=== PATIENT | male | born 1950 | race Caucasian/White ===

== ENCOUNTER 2017-06-20 14:11 | Inpatient (IN) ==
[2017-06-20] MEDS ORDERED: 0.9 % Sodium Chloride 1,000 ML IVC ONE (14:44)
--- NOTE | 2017-06-20 15:11 | Emergency Department Note ---
Disposition Clinical Impression: Ureterolithiasis, Renal calculus, bilateral Disposition: Admitted As Inpatient Condition: Fair Time of Disposition: 16:52 Abdominal Pain HPI - General Chief Complaint: ED Abdominal Pain Stated Complaint: Kidney Stone Time Seen by Provider: 06/20/17 14:16 Source: EMS Mode of arrival: EMS Limitations: no limitations Nursing Notes Reviewed: Yes Vital Signs Reviewed: Yes - History of Present Illness HPI Narrative: Patient is a 67-year-old male with a history of previous kidney stones who presents from the [facility] by EMS for bilateral large ureteral stones. Patient states stones were identified on MRI, over week ago. Patient had increase in pain with past 2 days patient states pain is right flank and right lower back area. Patient states pain is 7 out of 10 and achy but denies any nausea vomiting fevers. Patient went to the [facility] urgent care and was directed by urology they are to come to [place] and have assessment and fever for his stones that are greater than 1 cm bilaterally Pt Subjective Complaint: flank pain Onset (ago): day(s) Consistency: constant Location: RLQ Pain Severity: severe Pain Scale: 4 Quality: aching Radiation: none Migration to: no migration Improves with: medication Worsens with: movement Associated symptoms: Reports: denies other symptoms - Related Data Home Medications Medication Instructions Recorded Confirmed Acetaminophen/Diphenhydramine 2 each PO HS PRN 06/20/17 06/20/17 [Acetaminophen Pm Caplet] Allopurinol [Zyloprim] 300 mg PO DAILY 06/20/17 06/20/17 Amlodipine Besylate 2.5 mg PO DAILY 06/20/17 06/20/17 Aspirin Enteric Coated [Aspirin EC] 81 mg PO DAILY 06/20/17 06/20/17 Atorvastatin [Lipitor] 40 mg PO HS 06/20/17 06/20/17 Bee Pollen 1,100 mg PO DAILY 06/20/17 06/20/17 Cholecalciferol (D-3) [Vitamin D] 1,000 unit PO DAILY 06/20/17 06/20/17 Desloratadine [Clarinex] 5 mg PO DAILY PRN 06/20/17 06/20/17 Gabapentin [Neurontin] 500 mg PO TID 06/20/17 06/20/17 Ketotifen Fumarate [Zaditor] 1 drop BOTH EYES BID 06/20/17 06/20/17 Levothyroxine [Synthroid] 75 mcg PO 0630 06/20/17 06/20/17 Metformin HCl [Glucophage] 1,000 mg PO BID 06/20/17 06/20/17 Mometasone Furoate 06/20/17 06/20/17 Multivitamin-Min/Iron/FA/Vit K 1 each PO DAILY 06/20/17 06/20/17 [Multi-Day Plus Minerals Tablet] Omeprazole [PriLOSEC] 20 mg PO DAILY 06/20/17 06/20/17 Psyllium Husk (with Sugar) [Konsyl 3.4 gm PO Q48H 06/20/17 06/20/17 Psyllium Fiber Packet] Allergies Allergy/AdvReac Type Severity Reaction Status Date / Time No Known Allergies Allergy Verified 06/20/17 14:13 Review of Systems: Patient denies nausea, vomiting, diarrhea, fever, chills, shortness of breath, dysuria, hematuria All systems ED: reviewed and negative except as stated. Review of Systems: As Per HPI Abdominal Pain PMH - Past Medical History Medical history: Reports: diabetes, hyperlipidemia, hypertension, kidney stones Male Surgical History: Reports: orthopedic, other Psychiatric history: Reports: PTSD - Social History Smoking status: Former smoker Alcohol use: Reports: none Drug use: Reports: none Physical Exam Vital Signs Temperature 97.9 F 06/20/17 14:14 Pulse Rate 70 06/20/17 14:14 Respiratory Rate 18 06/20/17 14:14 Blood Pressure 136/79 06/20/17 14:14 O2 Sat by Pulse Oximetry 97 06/20/17 14:14 Temperature 97.9 F 06/20/17 14:14 Pulse Rate 69 06/20/17 14:42 Respiratory Rate 15 06/20/17 14:42 Blood Pressure 136/79 06/20/17 14:42 O2 Sat by Pulse Oximetry 96 06/20/17 14:42 Oxygen Delivery Oxygen Delivery Room Air 67-year-old male who is alert and oriented 3 and in no acute distress. Patient is walking and talking without issue. Patient is very conversive. - General Limitations: no limitations General appearance: alert, in no apparent distress - Head Head exam: atraumatic, normocephalic, normal inspection - Eye Eye exam: Present: normal appearance, PERRL, EOMI - ENT ENT exam: normal exam, normal oropharynx, mucous membranes moist - Neck Neck exam: Present: normal inspection, full ROM, trachea midline - Chest Chest inspection: Present: normal inspection, symmetric chest wall rise - Respiratory Respiratory exam: Present: normal lung sounds bilaterally - Cardiovascular Cardiovascular exam: Present: regular rate, normal rhythm, normal heart sounds - Abdominal Exam Abdominal exam: Present: soft, tenderness. Absent: distention, guarding, rebound, rigidity Abdominal tenderness: Present: RLQ - Extremities Exam Extremities exam: Present: normal inspection, full ROM, normal capillary refill. Absent: tenderness, pedal edema, joint swelling, calf tenderness - Back Exam Back exam: Present: normal inspection, tenderness. Absent: CVA tenderness (R), CVA tenderness (L) - Neurological Exam Neurological exam: Present: alert, oriented X3 - Psychiatric Psychiatric exam: Present: normal affect, normal mood - Skin Skin exam: Present: warm, dry, intact, normal color. Absent: diaphoresis Course Vital Signs Temperature 97.9 F 06/20/17 14:14 Pulse Rate 70 06/20/17 14:14 Respiratory Rate 18 06/20/17 14:14 Blood Pressure 136/79 06/20/17 14:14 O2 Sat by Pulse Oximetry 97 06/20/17 14:14 Temperature 98.3 F 06/21/17 05:41 Pulse Rate 73 06/21/17 05:41 Respiratory Rate 16 06/21/17 05:41 Blood Pressure 141/69 06/21/17 05:41 O2 Sat by Pulse Oximetry 95 06/21/17 05:41 Oxygen Delivery Oxygen Delivery Room Air Abdominal Pain - MDM Narrative Medical decision making narrative: Patient has bilateral ureterolithiasis CT abdomen and pelvis taken on June 04 shows 10.9 mm calculus of the proximal right ureter just distal to the UPJ with with moderate right-sided hydronephrosis with an additional 6 miliary calculus in the right renal pelvis and 5 mm calculus adjacent to the 7 mm calculus in the lower pole infundibulum of the right kidney There is also a left total 0.11 mm calculus in the distal left ureter approximately 3 cm from the UVJ which does not cause any significant left-sided hydronephrosis but has a left-sided renal calculus ranging from 2 mm up to 8 mm also identifies a 5.6 cm cyst from the anterior mid portion of the left kidney. Labs neg for abnormalities for UTI or renal insufficiency. Discussed the case with Dr. Steve of urology who states to admit to medicine and he will see patient in consult. Taryn Leonel BLOWING ENGINEER as except the patient for admission at 1658 hrs. - Medical Records Medical records reviewed: Yes I reviewed the patient's medical records. - Lab Data Lab results reviewed: Yes I reviewed the patient's lab results. Lab results narrative: Short CBC 06/21/17 06/20/17 Range/Units 04:42 16:19 WBC 8.2 9.5 (4.3-11.1) K/mcL Hgb 13.2 D 14.7 (12.9-16.9) g/dL Hct 40.4 44.6 (37.5-50.1) % Plt Count 179 192 (140-400) K/mcL Neutrophils # 4.5 6.1 (1.6-8.9) K/mcL BMP 06/21/17 06/20/17 Range/Units 04:42 16:19 Sodium 140 141 (136-145) mEq/L Potassium 4.6 H 4.9 H (3.5-4.5) mEq/L Chloride 107 107 (98-109) mEq/L Carbon Dioxide 28 27 (19-29) mEq/L BUN 22 18 (8-26) mg/dL Creatinine 1.05 1.04 (0.72-1.25) mg/dL Glucose 168 H 71 (70-99) mg/dL Calcium 8.9 9.1 (8.6-10.8) mg/dL Urine 06/20/17 Range/Units 14:45 Urine Color Yellow (Yellow) Urine Clarity Clear (Clear) Urine pH 6.0 (5.0-8.0) pH Units Ur Specific [place] 1.023 (1.010-1.025) Urine Protein Trace (Neg-Trace) mg/dL Urine Glucose (UA) Normal (Normal) mg/dL Result diagrams: 06/21/17 04:42 06/21/17 04:42 Lab Results 06/20/17 06/20/17 06/20/17 Range/Units 14:45 16:19 16:19 WBC 9.5 (4.3-11.1) K/mcL RBC 4.69 (4.19-5.50) M/mcL Hgb 14.7 (12.9-16.9) g/dL Hct 44.6 (37.5-50.1) % MCV 95.1 (83.0-100.0) fL MCH 31.3 (28.0-33.3) pg MCHC 33.0 (31.6-35.5) g/dL RDW 13.3 (11.5-14.5) % Plt Count 192 (140-400) K/mcL MPV 10.5 (9.4-12.4) fL Immature Gran % 0.2 (0-4) % Seg Neutrophils % 63.8 % Lymphocytes % 20.0 % Monocytes % 7.3 % Eosinophils % 7.9 % Basophils % 0.8 % Neutrophils # 6.1 (1.6-8.9) K/mcL Lymphocytes # 1.9 (0.6-4.6) K/mcL Monocytes # 0.7 (0.0-1.3) K/mcL Eosinophils # 0.8 H (0.0-0.6) K/mcL Basophils # 0.1 (0.0-0.2) K/mcL Sodium 141 (136-145) mEq/L Potassium 4.9 H (3.5-4.5) mEq/L Chloride 107 (98-109) mEq/L Carbon Dioxide 27 (19-29) mEq/L BUN 18 (8-26) mg/dL Creatinine 1.04 (0.72-1.25) mg/dL Est GFR ( Amer) > 60 (> 60) Est GFR (Non-Af Amer) > 60 (> 60) BUN/Creatinine Ratio 17 (6-26) Glucose 71 (70-99) mg/dL POC Glucose (58-89) Calculated Osmolality 292 (280-300) Calcium 9.1 (8.6-10.8) mg/dL Urine Color Yellow (Yellow) Urine Clarity Clear (Clear) Urine pH 6.0 (5.0-8.0) pH Units Ur Specific [place] 1.023 (1.010-1.025) Urine Protein Trace (Neg-Trace) mg/dL Urine Glucose (UA) Normal (Normal) mg/dL Urine Ketones Negative (Negative) mg/dL Urine Blood Negative (Negative) Urine Nitrite Negative (Negative) Urine Bilirubin Negative (Negative) Urine Urobilinogen Normal (Normal) mg/dL Ur Leukocyte Esterase Small H (Negative) Urine Microscopic RBC 5-15 H (0-3) per hpf Urine Microscopic WBC 15-30 H (0-3) per hpf Ur Squamous Epith Cells Moderate H (None-Few) per lpf Urine Bacteria None Seen (None-Few) per hpf Hyaline Casts None Seen (None-Few) per lpf Ur Culture Indicated? YES A (NO) 06/20/17 Range/Units 21:14 WBC (4.3-11.1) K/mcL RBC (4.19-5.50) M/mcL Hgb (12.9-16.9) g/dL Hct (37.5-50.1) % MCV (83.0-100.0) fL MCH (28.0-33.3) pg MCHC (31.6-35.5) g/dL RDW (11.5-14.5) % Plt Count (140-400) K/mcL MPV (9.4-12.4) fL Immature Gran % (0-4) % Seg Neutrophils % % Lymphocytes % % Monocytes % % Eosinophils % % Basophils % % Neutrophils # (1.6-8.9) K/mcL Lymphocytes # (0.6-4.6) K/mcL Monocytes # (0.0-1.3) K/mcL Eosinophils # (0.0-0.6) K/mcL Basophils # (0.0-0.2) K/mcL Sodium (136-145) mEq/L Potassium (3.5-4.5) mEq/L Chloride (98-109) mEq/L Carbon Dioxide (19-29) mEq/L BUN (8-26) mg/dL Creatinine (0.72-1.25) mg/dL Est GFR ( Amer) (> 60) Est GFR (Non-Af Amer) (> 60) BUN/Creatinine Ratio (6-26) Glucose (70-99) mg/dL POC Glucose 159 H (58-89) Calculated Osmolality (280-300) Calcium (8.6-10.8) mg/dL Urine Color (Yellow) Urine Clarity (Clear) Urine pH (5.0-8.0) pH Units Ur Specific [place] (1.010-1.025) Urine Protein (Neg-Trace) mg/dL Urine Glucose (UA) (Normal) mg/dL Urine Ketones (Negative) mg/dL Urine Blood (Negative) Urine Nitrite (Negative) Urine Bilirubin (Negative) Urine Urobilinogen (Normal) mg/dL Ur Leukocyte Esterase (Negative) Urine Microscopic RBC (0-3) per hpf Urine Microscopic WBC (0-3) per hpf Ur Squamous Epith Cells (None-Few) per lpf Urine Bacteria (None-Few) per hpf Hyaline Casts (None-Few) per lpf Ur Culture Indicated? (NO) - Radiology Data Radiology results reviewed: Yes I reviewed the patient's radiology results. Attestation Statement - Attestation Attestation: I examined this patient and my medical decision-making was reviewed with the Resident Physician, Dr. Wayne. I agree with the documented findings, disposition and treatment plan as described except to the extent set forth below. Pt is a 67 yo wm who [facility]teral stones and flank pain. Pt with a hx of prior kidney stones and multiple urologic interventions in the past including stone retrieval and lithotripsy. Pt had MRI approx one wk ago, and 2 days ago began haivng grad worsening R flank pain with nausea. No F/C, no abd pain, no urinary sxs. Pt found to have very large bilateral ureteral stones with bilateral hydronephrosis. I agree with pt's PE findings as documented. VSS. Pt had pain contorl IV and labs performed. Labs show normal UA and normal kidney function. D/W Urology who was consulted from the ED, and pt accepted for admission by the hospitalist service. Pt resting comfortably at this time and VSS.
[2017-06-20 15:56] LABS: Bilirubin,Urine Negative (Negative); Blood,Urine Negative (Negative); Clarity,Urine Clear (Clear); Color,Urine Yellow (Yellow); Glucose,Urine (UA) Normal (Normal); Ketones,Urine Negative (Negative); Leukocyte Esterase,Urine Small (Negative); Nitrite,Urine Negative (Negative); Protein,Urine Trace mg/dL (Neg-Trace); Specific Gravity,Urine 1.023 (1.010-1.025); Urobilinogen,Urine Normal (Normal)
[2017-06-20 15:58] LABS: Bacteria,Urine None Seen per hpf (None-Few); Hyaline Casts,Urine None Seen per lpf (None-Few); Squamous Epithelial Cell,Urine Moderate per lpf (None-Few); WBC,Urine 15-30 per hpf (0-3)
[2017-06-20 16:27] LABS: Basophils # 0.1 K/mcL (0.0-0.2); Basophils % 0.8 %; Eosinophils # 0.8 K/mcL (0.0-0.6); Eosinophils % 7.9 %; Hematocrit 44.6 % (37.5-50.1); Hemoglobin 14.7 g/dL (12.9-16.9); Immature Granulocytes % 0.2 % (0-4); Lymphocytes # 1.9 K/mcL (0.6-4.6); Mean Corpuscular Hemoglobin 31.3 pg (28.0-33.3); Mean Corpuscular Volume 95.1 fL (83.0-100.0); Mean Platelet Volume 10.5 fL (9.4-12.4); Monocytes # 0.7 K/mcL (0.0-1.3); Monocytes % 7.3 %; Neutrophils # 6.1 K/mcL (1.6-8.9); Platelet Count 192 K/mcL (140-400); Red Blood Count 4.69 M/mcL (4.19-5.50); Red Cell Distribution Width 13.3 % (11.5-14.5); Segmented Neutrophils % 63.8 %
[2017-06-20 16:39] LABS: BUN/Creatinine Ratio 17 (6-26); Blood Urea Nitrogen 18 mg/dL (8-26); Calcium 9.1 mg/dL (8.6-10.8); Carbon Dioxide 27 mEq/L (19-29); Chloride 107 mEq/L (98-109); Glucose 71 mg/dL (70-99); Osmolality,Calculated 292 (280-300); Potassium 4.9 mEq/L (3.5-4.5); Sodium 141 mEq/L (136-145); eGFR For African Americans > 60 (> 60); eGFR For Non-African Americans > 60 (> 60)
--- NOTE | 2017-06-20 18:58 | Urology History & Physical ---
Date of Encounter: 06/20/17 History of Present Illness HPI: Mr. Ventura is a 67 year old male Past Med Surg Social Fam HX - Past Medical History Medical history: diabetes, hyperlipidemia, hypertension, kidney stones Psychiatric history: PTSD - Social History Smoking Status: Former smoker Smokeless Tobacco Status: No Alcohol use: none Drug use: none Medications and Allergies Acetaminophen/Diphenhydramine [Acetaminophen Pm Caplet] 2 each PO HS PRN [History] Allopurinol [Zyloprim] 300 mg PO DAILY 06/20/17 [History] Amlodipine Besylate 2.5 mg PO DAILY 06/20/17 [History] Aspirin Enteric Coated [Aspirin EC] 81 mg PO DAILY 06/20/17 [History] Atorvastatin [Lipitor] 40 mg PO HS 06/20/17 [History] Bee Pollen 1,100 mg PO DAILY 06/20/17 [History] Cholecalciferol (D-3) [Vitamin D] 1,000 unit PO DAILY 06/20/17 [History] Desloratadine [Clarinex] 5 mg PO DAILY PRN 06/20/17 [History] Ketotifen Fumarate [Zaditor] 1 drop BOTH EYES BID 06/20/17 [History] Levothyroxine [Synthroid] 75 mcg PO 0630 06/20/17 [History] Metformin HCl [Glucophage] 1,000 mg PO BID 06/20/17 [History] Multivitamin-Min/Iron/FA/Vit K [Multi-Day Plus Minerals Tablet] 1 each PO DAILY 06/20/17 [History] Omeprazole [PriLOSEC] 20 mg PO DAILY 06/20/17 [History] Psyllium Husk (with Sugar) [Konsyl Psyllium Fiber Packet] 3.4 gm PO Q48H [History] 3 Allergy/AdvReac Type Severity Reaction Status Date / Time No Known Allergies Allergy Verified 06/20/17 14:13 Exam Initial Vital Signs Temp Pulse Resp BP Pulse Ox 97.9 F 70 18 136/79 97 06/20/17 14:14 06/20/17 14:14 06/20/17 14:14 06/20/17 14:14 06/20/17 14:14 Urology Results - Labs 06/20/17 16:19 06/20/17 16:19 Abnormal lab results Eosinophils # 0.8 K/mcL (0.0-0.6) H 06/20/17 16:19 Potassium 4.9 mEq/L (3.5-4.5) H 06/20/17 16:19 Ur Leukocyte Esterase Small (Negative) H 06/20/17 14:45 Urine Microscopic RBC 5-15 per hpf (0-3) H 06/20/17 14:45 Urine Microscopic WBC 15-30 per hpf (0-3) H 06/20/17 14:45 Ur Squamous Epith Cells Moderate per lpf (None-Few) H 06/20/17 14:45 Ur Culture Indicated? YES (NO) A 06/20/17 14:45 All other labs normal.
--- NOTE | 2017-06-20 19:01 | Urology - Consult Note ---
Date of Encounter: 06/20/17 Time of Encounter: 18:58 - Assessment and Plan (1) Renal calculus, bilateral Current Visit: Yes Status: Acute Assessment and plan: 67-year-old male with a history of bilateral ureteral stones and bilateral renal stones. His renal function has remained preserved. I recommend proceeding with a bilateral ureteroscopy, laser lithotripsy, stent placement.He was informed of the risks of the procedure including but not limited to bleeding, infection, injury to other structures, need for further procedures, stent irritation, incomplete fragmentation, ureteral perforation, need for nephrostomy tube, need for open repair, risks unforeseen, and the risk of anesthesia. He is willing to proceed. (2) Ureterolithiasis Current Visit: Yes Status: Acute Urology CN:HPI Consult date: 06/20/17 History of present illness: 67-year-old man was admitted from the emergency room for bilateral ureteral stones. He is a patient from the [facility]. He had a CT scan done about a week ago which showed bilateral stones. He was advised today to go to the [place] urgent care and he was then transferred from there to the [place] emergency department. He has some right flank pain remained the groin. He reports a history of nephrolithiasis. He is proceeding at shockwave lithotripsy. He often reports able to pass stones. He says his current stones seem to be obstructing. Past Med Surg Social Fam HX - Past Medical History Medical history: diabetes, hyperlipidemia, hypertension, kidney stones Psychiatric history: PTSD - Social History Smoking Status: Former smoker Smokeless Tobacco Status: No Alcohol use: none Drug use: none Medications and Allergies Acetaminophen/Diphenhydramine [Acetaminophen Pm Caplet] 2 each PO HS PRN [History] Allopurinol [Zyloprim] 300 mg PO DAILY 06/20/17 [History] Amlodipine Besylate 2.5 mg PO DAILY 06/20/17 [History] Aspirin Enteric Coated [Aspirin EC] 81 mg PO DAILY 06/20/17 [History] Atorvastatin [Lipitor] 40 mg PO HS 06/20/17 [History] Bee Pollen 1,100 mg PO DAILY 06/20/17 [History] Cholecalciferol (D-3) [Vitamin D] 1,000 unit PO DAILY 06/20/17 [History] Desloratadine [Clarinex] 5 mg PO DAILY PRN 06/20/17 [History] Ketotifen Fumarate [Zaditor] 1 drop BOTH EYES BID 06/20/17 [History] Levothyroxine [Synthroid] 75 mcg PO 0630 06/20/17 [History] Metformin HCl [Glucophage] 1,000 mg PO BID 06/20/17 [History] Multivitamin-Min/Iron/FA/Vit K [Multi-Day Plus Minerals Tablet] 1 each PO DAILY 06/20/17 [History] Omeprazole [PriLOSEC] 20 mg PO DAILY 06/20/17 [History] Psyllium Husk (with Sugar) [Konsyl Psyllium Fiber Packet] 3.4 gm PO Q48H [History] 3 Allergy/AdvReac Type Severity Reaction Status Date / Time No Known Allergies Allergy Verified 06/20/17 14:13 Review of Systems - Constitutional no chills, no fever(s) - EENT Nose, mouth and throat: no dizziness - Cardiovascular no chest pain - Respiratory no dyspnea - Gastrointestinal no nausea, no vomiting - Genitourinary no flank pain, no hematuria - Musculoskeletal no back pain - Integumentary no erythema, no rash - Neurological no weakness - Psychiatric no suicidal ideation - Hematologic/Lymphatic no easy bleeding - Allergic/Immunologic no wheezing Exam Initial Vital Signs Temp Pulse Resp BP Pulse Ox 97.9 F 70 18 136/79 97 06/20/17 14:14 06/20/17 14:14 06/20/17 14:14 06/20/17 14:14 06/20/17 14:14 - General physical appearance Present: well developed, well nourished, no distress - Eyes Absent: icteric - ENT Present: normal nares - Neck Present: trachea midline - Respiratory Present: normal respiratory effort - Cardiovascular Cardiovascular exam IM: RRR - Abdomen Abdomen: Present: soft Urology Results - Labs 06/20/17 16:19 06/20/17 16:19 Abnormal lab results Eosinophils # 0.8 K/mcL (0.0-0.6) H 06/20/17 16:19 Potassium 4.9 mEq/L (3.5-4.5) H 06/20/17 16:19 Ur Leukocyte Esterase Small (Negative) H 06/20/17 14:45 Urine Microscopic RBC 5-15 per hpf (0-3) H 06/20/17 14:45 Urine Microscopic WBC 15-30 per hpf (0-3) H 06/20/17 14:45 Ur Squamous Epith Cells Moderate per lpf (None-Few) H 06/20/17 14:45 Ur Culture Indicated? YES (NO) A 06/20/17 14:45 All other labs normal. - Imaging CT scan - abdomen: report reviewed, image reviewed CT scan - pelvis: report reviewed, image reviewed Consult Discharge Plan - Plan Referrals: Nae Phillips, HORSE RIDING COACH OR INSTRUCTOR [Primary Care Provider] -
--- NOTE | 2017-06-20 21:08 | Internal Med History&Physical ---
<OliJuice - Last Filed: 06/20/17 22:13> Date of Encounter: 06/20/17 Time of Encounter: 21:05 Assessment and Plan (1) Renal calculus, bilateral Current visit: Yes Status: Acute CT done at outside facility demonstrated bilateral stones measuring > 1 cm Urology consulted, planning on bilateral ureteroscopy, laser lithotripsy, stent placement tomorrow Will make NPO at midnight and support with analgesics and fluids while NPO (2) Ureterolithiasis Current visit: Yes Status: Acute Management as above (3) Non-insulin dependent type 2 diabetes mellitus Current visit: Yes Status: Chronic Will discontinue home anti-diabetics and start on low dose SSI and q6hr accuchecks as he is NPO for intervention No labs in our system, so will obtain A1c in AM (4) Hypothyroidism Current visit: Yes Status: Chronic Continue home Synthroid 75 mcg Will obtain TSH in AM Qualifiers: Qualified Code(s): E03.9 - Hypothyroidism, unspecified (5) Hypertension Current visit: Yes Status: Chronic Blood pressure WNL during exam Will continue home Norvasc Qualifiers: Qualified Code(s): I10 - Essential (primary) hypertension (6) DVT prophylaxis Current visit: Yes Status: Acute Heparin 5000 units BID Internal Medicine - H&P: HPI Chief complaint: kidney stones Admitted From: Home Plans for Post Hospital Care: Home History of present illness: Mr. Ventura is a 67 year old male who presents from [place] with bilateral kidney stones. He has long history of stones and most recently passed one 8 months ago. He also required lithotripsy multiple times as well. He states that this episode started 1 month with right flank pain and has progressively worsened and has involved his right groin and back. He states that he had a CAT scan done through the [place] a week ago which showed bilateral kidney stones measuring > 1 cm. He was informed by the [place] urologist earlier today to come to [place]. Patient denies any nausea, vomiting, fevers and has no issues with hematuria or dysuria. Regarding his previous stones, he denied ever having them analyzed and claims to have very good hydration at home. Past Med Surg Social Fam HX - Past Medical History Medical history: diabetes, hyperlipidemia, hypertension, kidney stones Psychiatric history: PTSD - Social History Smoking Status: Former smoker Smokeless Tobacco Status: No Alcohol use: none Drug use: none Internal Medicine - H&P: Meds Acetaminophen/Diphenhydramine [Acetaminophen Pm Caplet] 2 each PO HS PRN [History] Allopurinol [Zyloprim] 300 mg PO DAILY 06/20/17 [History] Amlodipine Besylate 2.5 mg PO DAILY 06/20/17 [History] Aspirin Enteric Coated [Aspirin EC] 81 mg PO DAILY 06/20/17 [History] Atorvastatin [Lipitor] 40 mg PO HS 06/20/17 [History] Bee Pollen 1,100 mg PO DAILY 06/20/17 [History] Cholecalciferol (D-3) [Vitamin D] 1,000 unit PO DAILY 06/20/17 [History] Desloratadine [Clarinex] 5 mg PO DAILY PRN 06/20/17 [History] Gabapentin [Neurontin] 500 mg PO TID 06/20/17 [History] Ketotifen Fumarate [Zaditor] 1 drop BOTH EYES BID 06/20/17 [History] Levothyroxine [Synthroid] 75 mcg PO 0630 06/20/17 [History] Metformin HCl [Glucophage] 1,000 mg PO BID 06/20/17 [History] Mometasone Furoate 06/20/17 [History] Multivitamin-Min/Iron/FA/Vit K [Multi-Day Plus Minerals Tablet] 1 each PO DAILY 06/20/17 [History] Omeprazole [PriLOSEC] 20 mg PO DAILY 06/20/17 [History] Psyllium Husk (with Sugar) [Konsyl Psyllium Fiber Packet] 3.4 gm PO Q48H [History] 3 Allergy/AdvReac Type Severity Reaction Status Date / Time No Known Allergies Allergy Verified 06/20/17 14:13 All Systems PM: A 10-system review of systems was performed and is negative for pertinent findings except as documented above in the HPI. - Constitutional Constitutional: no chills, no fever(s), no night sweats - EENT Eyes: no change in vision, no discharge, no pain, no photophobia Ears: no ear discharge, no ear pain, no tinnitus Nose, mouth and throat: no dysphagia, no nasal discharge, no neck pain, no sore throat - Cardiovascular Cardiovascular ROS IM: paroxysmal nocturnal dyspnea, no chest pain, no diaphoresis, no dyspnea, no lightheadedness, no palpitations, no syncope - Respiratory Respiratory: no cough, no dyspnea, no wheezing, no excessive phlegm production - Gastrointestinal Gastrointestinal: abdominal pain, no diarrhea, no hematemesis, no hematochezia, no melena, no nausea, no vomiting - Genitourinary Genitourinary ROS male: flank pain, no hematuria, no urinary hesitancy, no urinary incontinence, no urinary urgency - Musculoskeletal Musculoskeletal ROS IM: no numbness, no tingling - Integumentary Integumentary IM: no rash, no unusual bruising - Neurological Neurological ROS: no confusion, no convulsions, no focal weakness, no numbness, no tingling, no tremor(s) - Hematologic/Lymphatic Hematologic/Lymphatic: no easy bruising - Constitutional Vitals: Temp Pulse Resp BP Pulse Ox 97.4 F L 68 17 144/76 96 06/20/17 20:36 06/20/17 20:36 06/20/17 20:36 06/20/17 20:36 06/20/17 20:36 General appearance: Present: cooperative, pleasant, no acute distress, answers questions appropriately - Head Head exam: Present: atraumatic, normocephalic - Eye Eye exam: Present: PERRL, conjuntiva pink, sclera anicteric - Neck Neck exam general surgery: Present: supple, trachea midline. Absent: lymphadenopathy - Respiratory Respiratory exam: Present: CTAB. Absent: accessory muscle use, rales, rhonchi, wheezes - Cardiovascular Cardiovascular exam: Present: RRR, +S1, +S2. Absent: diastolic murmur, gallop, rubs, systolic murmur - GI/Abdominal GI/Abdominal exam: Present: normal bowel sounds, soft, no peritoneal signs. Absent: distended, tenderness - Extremities Exam Extremities exam: Present: pedal edema (trace pitting), warm, radial pulses palpable and symmetrical. Absent: calf tenderness, cyanotic - Neurological Exam Neurological exam: Present: alert, no focal deficits. Absent: facial droop, speech deficit - Skin Skin exam: Present: dry, intact Internal Med - H&P Results - Labs CBC & Chem 7: 06/20/17 16:19 06/20/17 16:19 <Dennis Brown - Last Filed: 06/21/17 06:36> Date of Encounter: 06/20/17 Internal Medicine - H&P: HPI History of present illness: Mr. Ventura is a 67 year old male Past Med Surg Social Fam HX - Past Surgical History Surgical History: orthopedic, other (right shoulder and right hip surgery following trauma) - Additional Family History Additional family history: No family hx of kidney stones, father of a stroke, mother of congestive heart failure, he however does not know if any of them had HTN or DM All Systems PM: A 10-system review of systems was performed and is negative for pertinent findings except as documented above in the HPI. - Constitutional Vitals: Temp Pulse Resp BP Pulse Ox 98.3 F 73 16 141/69 95 06/21/17 05:41 06/21/17 05:41 06/21/17 05:41 06/21/17 05:41 06/21/17 05:41 Internal Med - H&P Results - Labs CBC & Chem 7: 06/21/17 04:42 06/21/17 04:42 Labs: Short CBC 06/21/17 Range/Units 04:42 WBC 8.2 (4.3-11.1) K/mcL Hgb 13.2 D (12.9-16.9) g/dL Hct 40.4 (37.5-50.1) % Plt Count 179 (140-400) K/mcL Neutrophils # 4.5 (1.6-8.9) K/mcL BMP 06/21/17 04:42 Sodium 140 Potassium 4.6 H Chloride 107 Carbon Dioxide 28 BUN 22 Creatinine 1.05 Glucose 168 H Calcium 8.9 - Impressions reviewed labs and imaging reports from the referring hospital - Attending Attestation I personally interviewed and examined this patient and my medical decision- making was reviewed with the Resident Physician. I agree with the documented findings, disposition and treatment plan as described except to the extent set forth above. Dennis Brown MD, MPH Hospitalist
[2017-06-20] MEDS ORDERED: Naloxone 0.4 MG/ML INJ IVP PRN (21:10)
[2017-06-20] MEDS ORDERED: Ipratropium/Albuterol Neb 3 ML IH PRN (21:10)
[2017-06-20] MEDS ORDERED: Acetaminophen 325 MG TABLET PO PRN (21:10)
[2017-06-20] MEDS ORDERED: Ondansetron ODT 4 MG TAB.RAPDIS SL PRN (21:10)
[2017-06-20] MEDS ORDERED: *HR* Dextrose 50 % in Water (Syg) 50 ML SYRINGE IVP PRN (21:10)
[2017-06-20] MEDS ORDERED: D5% in Water 1,000 ML IVC PRN (21:10)
[2017-06-20] MEDS ORDERED: Dextrose Gel 15 GM PO PRN ×2 (21:10)
[2017-06-20] MEDS ORDERED: *HR* HYDROcodone/Acet 5/325 mg TABLET PO PRN (21:10)
[2017-06-20] MEDS: 0.9 % Sodium Chloride 1,000 ML IVC SCH (21:48)
[2017-06-21] MEDS: Insulin LISPRO 300 UNITS/3 ML VIAL SQ SCH ×3 (00:48→12:43)
[2017-06-21 05:56] LABS: Basophils # 0.1 K/mcL (0.0-0.2); Basophils % 1.1 %; Eosinophils # 0.8 K/mcL (0.0-0.6); Eosinophils % 10.2 %; Hematocrit 40.4 % (37.5-50.1); Hemoglobin 13.2 g/dL (12.9-16.9); Immature Granulocytes % 0.4 % (0-4); Lymphocytes % 24.5 %; Mean Corpuscular HGB Conc 32.7 g/dL (31.6-35.5); Mean Corpuscular Hemoglobin 31.6 pg (28.0-33.3); Mean Corpuscular Volume 96.7 fL (83.0-100.0); Mean Platelet Volume 11.2 fL (9.4-12.4); Monocytes # 0.7 K/mcL (0.0-1.3); Monocytes % 8.8 %; Neutrophils # 4.5 K/mcL (1.6-8.9); Platelet Count 179 K/mcL (140-400); Red Blood Count 4.18 M/mcL (4.19-5.50); Red Cell Distribution Width 13.2 % (11.5-14.5)
[2017-06-21] MEDS ORDERED: *HR* Heparin 5,000 UNIT/ML VIAL SQ SCH (06:00)
[2017-06-21 06:03] LABS: BUN/Creatinine Ratio 21 (6-26); Blood Urea Nitrogen 22 mg/dL (8-26); Calcium 8.9 mg/dL (8.6-10.8); Carbon Dioxide 28 mEq/L (19-29); Chloride 107 mEq/L (98-109); Glucose 168 mg/dL (70-99); Magnesium 1.7 mg/dL (1.6-2.6); Osmolality,Calculated 297 (280-300); Phosphorous 3.4 mg/dL (2.3-4.7); Potassium 4.6 mEq/L (3.5-4.5); Sodium 140 mEq/L (136-145); eGFR For African Americans > 60 (> 60); eGFR For Non-African Americans > 60 (> 60)
[2017-06-21 06:10] LABS: Hemoglobin A1C 6.2 %
[2017-06-21 06:25] LABS: Thyroid Stimulating Hormone 6.976 mcIU/mL (0.350-4.840)
--- NOTE | 2017-06-21 06:45 | Urology Progress Note ---
Date of Encounter: 06/21/17 Time of Encounter: 06:44 - Assessment and Plan (1) Renal calculus, bilateral Current Visit: Yes Status: Acute Assessment and plan: He has bilateral ureteral stones. Plan for bilateral ureteroscopy, laser lithotripsy, stent placement. He understands that the renal stones will not be treated, given the volume of his ureteral stones. We will defer treatment of his renal stones to a later date. However, treatment of his ureteral stones will relieve his obstruction. He is ready for surgery today. All risks were informed (2) Ureterolithiasis Current Visit: Yes Status: Acute Progress Note Narrative: 67-year-old man with bilateral ureteral stones. He is ready for bilateral ureteroscopy today. No issues overnight. Objective Initial Vital Signs Temp Pulse Resp BP Pulse Ox 97.9 F 70 18 136/79 97 06/20/17 14:14 06/20/17 14:14 06/20/17 14:14 06/20/17 14:14 06/20/17 14:14 - General physical appearance Present: well developed, well nourished, no distress - Respiratory Present: normal respiratory effort - Abdomen Present: soft - Labs 06/21/17 04:42 06/21/17 04:42 Diabetes panel 06/21/17 06/21/17 Range/Units 04:42 04:42 Sodium 140 (136-145) mEq/L Potassium 4.6 H (3.5-4.5) mEq/L Chloride 107 (98-109) mEq/L Carbon Dioxide 28 (19-29) mEq/L BUN 22 (8-26) mg/dL Creatinine 1.05 (0.72-1.25) mg/dL Glucose 168 H (70-99) mg/dL Hemoglobin A1c 6.2 H ( - 5.6) % Calcium 8.9 (8.6-10.8) mg/dL Thyroid panel 06/21/17 Range/Units 04:42 TSH 6.976 H (0.350-4.840) mcIU/mL Calcium panel 06/21/17 Range/Units 04:42 Calcium 8.9 (8.6-10.8) mg/dL Phosphorus 3.4 (2.3-4.7) mg/dL Pituitary panel 06/21/17 Range/Units 04:42 Sodium 140 (136-145) mEq/L Potassium 4.6 H (3.5-4.5) mEq/L Chloride 107 (98-109) mEq/L Carbon Dioxide 28 (19-29) mEq/L BUN 22 (8-26) mg/dL Creatinine 1.05 (0.72-1.25) mg/dL Glucose 168 H (70-99) mg/dL Calcium 8.9 (8.6-10.8) mg/dL TSH 6.976 H (0.350-4.840) mcIU/mL Adrenal panel 06/21/17 Range/Units 04:42 Sodium 140 (136-145) mEq/L Potassium 4.6 H (3.5-4.5) mEq/L Chloride 107 (98-109) mEq/L Carbon Dioxide 28 (19-29) mEq/L BUN 22 (8-26) mg/dL Creatinine 1.05 (0.72-1.25) mg/dL Glucose 168 H (70-99) mg/dL Calcium 8.9 (8.6-10.8) mg/dL Consult Discharge Plan - Plan Referrals: Nae Phillips, END TRIMMER [Primary Care Provider] -
[2017-06-21] MEDS ORDERED: Aspirin Enteric Coated 81 MG Tablet PO SCH (09:00)
[2017-06-21] MEDS ORDERED: amLODIPine 5 MG TABLET PO SCH (09:00)
[2017-06-21] MEDS: 0.9 % Sodium Chloride 1,000 ML IVC SCH (10:26)
[2017-06-21] MEDS: Gabapentin 400 MG CAPSULE PO SCH ×3 (10:29→21:09)
--- NOTE | 2017-06-21 11:59 | Internal Med Progress Note ---
Date of Encounter: 06/21/17 Time of Encounter: 11:30 - Assessment and plan (1) Ureterolithiasis Current Visit: Yes Status: Acute Assessment and plan: [facility] cm right ureteral stone with moderate right hydroureteronephrosis. Patient also presents with acute on chronic right ureteral colic. Urology consult appreciated, plan for bilateral ureteroscopy/laser lithotripsy/stents. Continue IV hydration and pain control with when necessary IV morphine. Monitor urine output closely. UA suggestive of UTI; continue IV Rocephin and f/up urine culture. (2) Renal calculus, bilateral Current Visit: Yes Status: Chronic Assessment and plan: outpatient f/up recommended after ureteral stones are treated. (3) Non-insulin dependent type 2 diabetes mellitus Current Visit: Yes Status: Chronic Assessment and plan: Accu-Chek blood glucose monitoring with sliding scale insulin as needed. Currently nothing by mouth. Blood sugars noted to be well controlled. (4) Hypothyroidism Current Visit: Yes Status: Chronic Assessment and plan: Continue levothyroxine. Qualifiers: Hypothyroidism type: unspecified Qualified Code(s): E03.9 - Hypothyroidism , unspecified (5) Hypertension Current Visit: Yes Status: Chronic Qualifiers: Hypertension type: essential hypertension Qualified Code(s): I10 - Essential (primary) hypertension - Subjective Interval history: Feels well; improving right loin to groin pain; no fever/chills, nausea, vomiting. No hematuria, pyuria. Awaiting OR procedure for lithotripsy and ureteral stents; - Constitutional Vitals: Temp Pulse Resp BP Pulse Ox 97.5 F L 80 18 131/79 96 06/21/17 11:18 06/21/17 11:18 06/21/17 11:18 06/21/17 11:18 06/21/17 11:18 General appearance: Present: A&O X 3, no acute distress, obese, answers questions appropriately - Respiratory Respiratory exam: Present: CTAB. Absent: accessory muscle use, rales, rhonchi, wheezes - Cardiovascular Cardiovascular exam: Present: RRR, +S1, +S2. Absent: diastolic murmur, gallop, rubs, systolic murmur - GI/Abdominal GI/Abdominal exam: Present: normal bowel sounds, soft, no peritoneal signs. Absent: distended, tenderness - Extremities Exam Extremities exam: Present: full ROM, warm, radial pulses palpable and symmetrical. Absent: calf tenderness, cyanotic, pedal edema - Neurological Exam Neurological exam: Present: CN II-XII intact, oriented X3, no focal deficits. Absent: pronater drift, facial droop, speech deficit Internal Medicine: Result - Labs CBC & Chem 7: 06/21/17 04:42 06/21/17 04:42 Labs: Short CBC 06/21/17 Range/Units 04:42 WBC 8.2 (4.3-11.1) K/mcL Hgb 13.2 D (12.9-16.9) g/dL Hct 40.4 (37.5-50.1) % Plt Count 179 (140-400) K/mcL Neutrophils # 4.5 (1.6-8.9) K/mcL BMP 06/21/17 04:42 Sodium 140 Potassium 4.6 H Chloride 107 Carbon Dioxide 28 BUN 22 Creatinine 1.05 Glucose 168 H Calcium 8.9 - VTE Documentation of Mechanical Device: Intermittent pneumatic compression device Consult Discharge Plan - Plan Referrals: Nae Phillips, ANALYTICAL CHEMISTRY TEACHER [Primary Care Provider] -
[2017-06-21] MEDS ORDERED: ceFAZolin 3,000 MG in D5% in Water 100 ML IVPB ONE (15:00)
--- NOTE | 2017-06-21 16:51 | Anesthesia Evaluation PreOp ---
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: Other (myasthenia gravis; takes pyridostigmine three times daily; ptsd) Other Medical History: Diabetes Type II (oral medications only) Anesthesia History: No Prior Anesthetic Complications (except difficulty emerging after a lithotripsy) Alcohol Use: none Drug use: none Medications and Allergies Acetaminophen/Diphenhydramine [Acetaminophen Pm Caplet] 2 each PO HS PRN [History] Allopurinol [Zyloprim] 300 mg PO DAILY 06/20/17 [History] Amlodipine Besylate 2.5 mg PO DAILY 06/20/17 [History] Aspirin Enteric Coated [Aspirin EC] 81 mg PO DAILY 06/20/17 [History] Atorvastatin [Lipitor] 40 mg PO HS 06/20/17 [History] Bee Pollen 1,100 mg PO DAILY 06/20/17 [History] Cholecalciferol (D-3) [Vitamin D] 1,000 unit PO DAILY 06/20/17 [History] Desloratadine [Clarinex] 5 mg PO DAILY PRN 06/20/17 [History] Gabapentin [Neurontin] 500 mg PO TID 06/20/17 [History] Ketotifen Fumarate [Zaditor] 1 drop BOTH EYES BID 06/20/17 [History] Levothyroxine [Synthroid] 75 mcg PO 0630 06/20/17 [History] Metformin HCl [Glucophage] 1,000 mg PO BID 06/20/17 [History] Mometasone Furoate 06/20/17 [History] Multivitamin-Min/Iron/FA/Vit K [Multi-Day Plus Minerals Tablet] 1 each PO DAILY 06/20/17 [History] Omeprazole [PriLOSEC] 20 mg PO DAILY 06/20/17 [History] Psyllium Husk (with Sugar) [Konsyl Psyllium Fiber Packet] 3.4 gm PO Q48H [History] 3 Allergy/AdvReac Type Severity Reaction Status Date / Time No Known Allergies Allergy Verified 06/20/17 14:13 - Meds/Allergy Pre-op Review Medications Reviewed: Yes Allergies Reviewed: Yes Beta Blockers on Current Med List: No Anesthesia Results - Labs 06/21/17 04:42 06/21/17 04:42 - Imaging EKG: report reviewed, image reviewed (SR with sinus arrhythmia; marked LAD; low qrs voltage; incomplete RBBB) Anesthesia Exam Last Vital Signs Temp 98.3 F 06/21/17 15:13 Pulse 87 06/21/17 15:13 Resp 18 06/21/17 15:13 BP 125/79 06/21/17 15:13 Pulse Ox 96 06/21/17 15:13 Weight: 130 kg NPO (# of Hours): > 8 hrs - HEENT Pupil (Motor): Pupils equal, EOMI Mallampati: III Teeth: Edentulous Oral Opening: Greater than 3 - RAPIER INSERTION LOOM FIXER LOC: Oriented RAPIER INSERTION LOOM FIXER Motor: Normal RUE, Normal LUE, Normal RLE, Normal LLE, Normal Face - Cardiac Rhythm: Regular Murmur: None - Pulmonary Breath Sounds: bilateral Clear Respiratory Effort: Symmetrical Anesthesia Assess/Plan ASA Score: 3 Modified [place] Scale for Level of Consciousness: Cooperative, oriented, and tranquil Anesthetic Plan: General, Precautions (avoid muscle relaxants; potential for post-op weakness/need for intubation) Monitoring Plan: Standard Monitors Recovery Plan: PACU
[2017-06-21] MEDS ORDERED: *HR* Propofol 200 MG/20 ML VIAL IVP ONE (17:19)
[2017-06-21] MEDS ORDERED: Lidocaine -MPF 2% 2 ML VIAL ONE (17:20)
[2017-06-21] MEDS ORDERED: Ondansetron 4 MG/2 ML VIAL ONE (17:20)
[2017-06-21] MEDS ORDERED: *HR* FentaNYL (PF) 100 MCG/2 ML VIAL ONE (18:27)
[2017-06-21] MEDS ORDERED: Dexamethasone 4 MG/ML VIAL ONE (18:27)
[2017-06-21] MEDS ORDERED: *HR* HYDROmorphone (PF) 1 MG/ML SYRINGE IVP PRN ×2 (18:53→20:36)
[2017-06-21] MEDS ORDERED: *HR* Promethazine 25 MG/ML VIAL IVP PRN (18:53)
--- NOTE | 2017-06-21 19:49 | Operative Note ---
Date of procedure: 06/21/17 Pre-op diagnosis: Bilateral ureteral stones Post-op diagnosis: same Procedure: Bilateral ureteroscopy, laser lithotripsy, basket stone extraction, and stent placement. Implants: Bilateral 6 Citizen [place] by 26 cm double-J stents. Complications: None. Anesthesia: JOHNNYA Surgeon: Rob Steve Estimated blood loss (cc): 1 Specimen: kidney stones Condition: stable Disposition: PACU Procedure in Detail: Indications: Mr. Ventura is a 67-year-old male who has a history of nephrolithiasis. He has a left distal ureteral stone as well as a right proximal ureteral stone. He elected to undergo a bilateral ureteroscopy, laser lithotripsy, and basket stone extraction with stent placement. He was aware of the risks of the procedure including but not limited to bleeding, infection, injury to other structures, need for further procedures, stent irritation, need for nephrostomy tube, need for open repair, risks otherwise unforeseen, and the risk of anesthesia. He is willing to proceed. Procedure in Detail: After informed consent was obtained the patient was brought back to the operating room and placed in supine position. A time out was performed. General anesthesia was administered and an LMA was placed. He was then placed in the lithotomy position. He was prepped and draped in the usual sterile fashion. Cystoscopy was performed. The anterior urethra was normal. There was no evidence of bladder tumors. The ureteral orifices were in the normal orthotopic position. There was no duplication of the ureteral orifices. The Zip wire was placed in the left ureteral orifice. The wire was then brought up into the kidney under fluoroscopic guidance. The semirigid ureteroscope was advanced into the distal ureter. A stone was seen there. It was fragmented with the 200 micron laser fiber. The fragments were basket extracted. Once the stones were removed and placed a 6 Citizen [place] by 26 cm double-J stent. The dangle strings were then removed. The sensor wire was then placed up the right ureteral orifice. I then passed the 11/13 Citizen [place] ureteral access sheath. The inner obturator was removed and the Zip wire was placed. The sheath was then replaced leaving the ZIP wire as a safety wire. The flexible ureteroscope was then advanced into the kidney. Multiple stones were seen throughout the kidney. There was a larger stone seen within the renal pelvis. This was pushed into the upper pole calyx. The stone was broken up with the laser fiber. The Gavin's plaques were broken up with the laser fiber as well. All the stone debris seen to be of a size which could pass. The scope was removed. There is no injury on the pullout ureteroscopy. A 6 [place] by 26cm JJ stent was then placed. The dangle strings were removed. The patient was then awakened from general anesthesia and brought to recovery room in good condition. All sponge, needle, and instrument counts were correct.
[2017-06-21] MEDS ORDERED: Naloxone 0.4 MG/ML INJ IVP PRN (20:36)
[2017-06-21] MEDS ORDERED: 0.9 % Sodium Chloride 1,000 ML IVC SCH (20:36)
[2017-06-21] MEDS ORDERED: Ondansetron ODT 4 MG TAB.RAPDIS SL PRN (20:36)
[2017-06-21] MEDS ORDERED: Dextrose Gel 15 GM PO PRN ×2 (20:36)
[2017-06-21] MEDS ORDERED: *HR* Dextrose 50 % in Water (Syg) 50 ML SYRINGE IVP PRN (20:36)
[2017-06-21] MEDS ORDERED: Ipratropium/Albuterol Neb 3 ML IH PRN (20:36)
[2017-06-21] MEDS ORDERED: *HR* HYDROcodone/Acet 5/325 mg TABLET PO PRN (20:36)
[2017-06-21] MEDS ORDERED: D5% in Water 1,000 ML IVC PRN (20:36)
[2017-06-21] MEDS ORDERED: Acetaminophen 325 MG TABLET PO PRN (20:36)
--- NOTE | 2017-06-21 20:46 | Anesthesia Evaluation Post Op ---
Date of Encounter: 06/21/17 Time of Encounter: 20:45 - Vital Signs Vital Signs: Vital Signs/O2 Sat, Most Current Temp Pulse Resp BP Pulse Ox 97.5 F L 70 20 121/77 97 06/21/17 20:39 06/21/17 20:39 06/21/17 20:39 06/21/17 20:39 06/21/17 20:39 - Lungs Lungs: Clear Ascult./Percussion - Airway Airway: Non-obstructed - Cardiovascular Regular Rate - Mental Status Mental Status: Alert & Oriented, Answers Appropriately - Pain Pain Scale: 0 Pain Scale used: Numeric (1 - 10) - Nausea Vomiting Nausea Vomiting: Not Present - Hydration Hydration: Tolerates oral liquids, Able to void - Discharge PostOp Status: Transfer Patient to floor
[2017-06-22] MEDS ORDERED: Insulin LISPRO 300 UNITS/3 ML VIAL SQ SCH
[2017-06-22] MEDS ORDERED: *HR* Heparin 5,000 UNIT/ML VIAL SQ SCH (06:00)
--- NOTE | 2017-06-22 08:15 | Urology Progress Note ---
Date of Encounter: 06/22/17 Time of Encounter: 08:13 - Assessment and Plan (1) Renal calculus, bilateral Current Visit: Yes Status: Chronic Assessment and plan: He is doing well after his bilateral ureteroscopy with stent placement. Plan to discharge home later today. He can follow up next week for a cystoscopy and stent removal. (2) Ureterolithiasis Current Visit: Yes Status: Acute Progress Note Narrative: Postop day #1 status post bilateral ureteroscopic stone extraction. He is doing well. Objective Initial Vital Signs Temp Pulse Resp BP Pulse Ox 97.9 F 70 18 136/79 97 06/20/17 14:14 06/20/17 14:14 06/20/17 14:14 06/20/17 14:14 06/20/17 14:14 - General physical appearance Present: well developed, well nourished, no distress - Respiratory Present: normal respiratory effort - Abdomen Present: soft - Labs 06/21/17 04:42 06/21/17 04:42 - VTE Documentation of Mechanical Device: Intermittent pneumatic compression device Consult Discharge Plan - Plan Additional Instructions: 1. The patient can follow up in 1-2 weeks for a cystoscopy and stent removal. 2. He should expect to feel flank pain with voiding. 3. The patient should call for any fevers, chills, nausea, emesis, or uncontrolled pain. 4. Please provide a work excuse if necessary for up to 1 week off. Referrals: Nae Phillips CNP [Primary Care Provider] - Rob Steve MD [Partnered Physician] - (1-2 weeks for a cystoscopy and stent removal.)
[2017-06-22] MEDS: Insulin LISPRO 300 UNITS/3 ML VIAL SQ SCH ×2 (08:17→12:22)
[2017-06-22] MEDS ORDERED: amLODIPine 5 MG TABLET PO SCH (09:00)
[2017-06-22] MEDS ORDERED: Aspirin Enteric Coated 81 MG Tablet PO SCH (09:00)
[2017-06-22] MEDS: Gabapentin 400 MG CAPSULE PO SCH (10:03)
--- NOTE | 2017-06-22 14:20 | Discharge Summary ---
Date of Encounter: 06/22/17 Time of Encounter: 14:17 - Discharge Diagnosis (1) Renal calculus, bilateral Priority: Primary Status: Chronic (2) Ureterolithiasis Priority: Secondary Status: Acute (3) Non-insulin dependent type 2 diabetes mellitus Priority: Secondary Status: Chronic (4) Hypothyroidism Priority: Secondary Status: Chronic Qualifiers: Hypothyroidism type: unspecified Qualified Code(s): E03.9 - Hypothyroidism , unspecified (5) Hypertension Priority: Secondary Status: Chronic Qualifiers: Hypertension type: essential hypertension Qualified Code(s): I10 - Essential (primary) hypertension - Discharge Medications Home Medications: Acetaminophen/Diphenhydramine [Acetaminophen Pm Caplet] 2 each PO HS PRN [History] Allopurinol [Zyloprim] 300 mg PO DAILY 06/20/17 [History] Amlodipine Besylate 2.5 mg PO DAILY 06/20/17 [History] Aspirin Enteric Coated [Aspirin EC] 81 mg PO DAILY 06/20/17 [History] Atorvastatin [Lipitor] 40 mg PO HS 06/20/17 [History] Bee Pollen 1,100 mg PO DAILY 06/20/17 [History] Cholecalciferol (D-3) [Vitamin D] 1,000 unit PO DAILY 06/20/17 [History] Desloratadine [Clarinex] 5 mg PO DAILY PRN 06/20/17 [History] Gabapentin [Neurontin] 500 mg PO TID 06/20/17 [History] Ketotifen Fumarate [Zaditor] 1 drop BOTH EYES BID 06/20/17 [History] Levothyroxine [Synthroid] 75 mcg PO 0630 06/20/17 [History] Metformin HCl [Glucophage] 1,000 mg PO BID 06/20/17 [History] Mometasone Furoate 06/20/17 [History] Multivitamin-Min/Iron/FA/Vit K [Multi-Day Plus Minerals Tablet] 1 each PO DAILY 06/20/17 [History] Omeprazole [PriLOSEC] 20 mg PO DAILY 06/20/17 [History] Psyllium Husk (with Sugar) [Konsyl Psyllium Fiber Packet] 3.4 gm PO Q48H [History] Allergies/Adverse Reactions: 3 Allergy/AdvReac Type Severity Reaction Status Date / Time No Known Allergies Allergy Verified 06/20/17 14:13 Procedures/tests Complete & Pending: Procedures Performed prior 72 hours Category Date Time Status EKG [ECG 12 lead ECG] [ECG] Routine Y 06/21/17 06:46 Stop Req Date of admission: 06/20/17 21:16 Primary care physician: Nae Phillips CNP - Patient Status Disposition: Home, Self-Care Condition: Good Functional capacity at discharge: independent ambulation Overall status at discharge: patient is back to baseline - Discharge Instructions Follow Up With: Rob Steve MD [Partnered Physician] - (1-2 weeks for a cystoscopy and stent removal.) Nae Phillips CNP [Primary Care Provider] - Additional Instructions: 1. The patient can follow up in 1-2 weeks for a cystoscopy and stent removal. 2. He should expect to feel flank pain with voiding. 3. The patient should call for any fevers, chills, nausea, emesis, or uncontrolled pain. 4. Please provide a work excuse if necessary for up to 1 week off. - Diet and Activity Activity: increase activity as tolerated Diet: advance to your usual diet Interval History: Patient is a 67-year-old male with a history of previous kidney stones who presents from the [place] for bilateral large ureteral stones. Patient states stones were identified on MRI, over week ago. Patient had increase in pain with past 2 days patient states pain is right flank and right lower back area. Patient states pain is 7 out of 10 and achy but denies any nausea vomiting fevers. Patient went to the [place] urgent care and was directed by urology they are to come to [place] and have assessment and fever for his stones that are greater than 1 cm bilaterally. Hospital course: Urology was consulted and patient underwent bilateral ureteroscopy, laser lithotripsy, basket stone extraction, and stent placement. He tolerated procedure well. He wad discharged home. He has a follow-up arranged in one week with Urology. - Time Spent with Patient Total time spent providing and/or coordinating discharge services: - Constitutional Vitals: Temp Pulse Resp BP Pulse Ox 987.8 F H 82 14 127/78 97 06/22/17 11:28 06/22/17 11:28 06/22/17 11:28 06/22/17 11:28 06/22/17 11:28 General appearance: Present: A&O X 3, no acute distress, obese, answers questions appropriately Exam: Gen: NAD, AAOx3 CVS: RRR Lungs: CTAB Abd: Nt/nd : deferred Ext: no edema. - VTE Documentation of Mechanical Device: Intermittent pneumatic compression device
[2017-06-22 14:28] VITALS: BP 131/73
--- NOTE | 2017-06-23 11:09 | Electrocardiograph Report ---
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
== END 2017-06-22 15:19 | disposition home or self-care (01) | DRG 670 ==
LOC: EMEROO 14:11 → 3ANU 14:11 → SUATTDRO 21:16
PROVIDERS: ADMIT Internal Medicine; ATTEND Internal Medicine

== ENCOUNTER 2019-11-02 10:52 | Observation (INO) ==
[2019-11-02] MEDS ORDERED: CeFAZolin Syr 3,000MG/30 ML 3,000 MG/30 ML SYRINGE IVPB ONE (11:24)
[2019-11-02] MEDS ORDERED: Ringers Solution, Lactated 1,000 ML IVC SCH ×2 (11:30→16:34)
[2019-11-02] MEDS ORDERED: *HR* Midazolam HCl 2 MG/2 ML VIAL ONE (11:59)
[2019-11-02] MEDS ORDERED: *HR* FentaNYL (PF) 100 MCG/2 ML VIAL ONE (11:59)
[2019-11-02] MEDS ORDERED: Dexamethasone 4 MG/ML VIAL ONE (12:01)
[2019-11-02] MEDS ORDERED: Ondansetron 4 MG/2 ML VIAL ONE (12:01)
[2019-11-02] MEDS ORDERED: Gabapentin 300 MG CAPSULE PO ONE (12:40)
[2019-11-02] MEDS ORDERED: *HR* OxyCODONE ER (12 HR) 10 MG TABLET PO ONE (12:40)
[2019-11-02] MEDS ORDERED: Ondansetron 4 MG/2 ML VIAL IVP ONE (12:41)
[2019-11-02] MEDS ORDERED: *HR* HYDROmorphone PF 0.5 MG/0.5 ML SYRINGE IVP PRN (12:41)
[2019-11-02] MEDS ORDERED: *HR* OxyCODONE Immed Rel 5 MG TABLET PO PRN (12:41)
[2019-11-02] MEDS ORDERED: Tranexamic Acid 1,000 MG/10 ML VIAL ONE (12:41)
[2019-11-02] MEDS ORDERED: Ethanol\\Acetic Acid\\Na Ace\\Ben 1,000 ML IRRIG.SOLN IR ONE (13:12)
[2019-11-02] MEDS ORDERED: EPHEDrine 50 MG/ML VIAL ONE (13:40)
[2019-11-02] MEDS ORDERED: *HR* PHENYLEPHRINE 1,000 MCG/10 ML SYRINGE IVP ONE ×2 (13:44→15:04)
[2019-11-02] MEDS ORDERED: *HR* Propofol 200 MG/20 ML VIAL IVP ONE (14:51)
[2019-11-02] MEDS ORDERED: D5% in Water 1,000 ML IVC PRN (16:34)
[2019-11-02] MEDS ORDERED: *HR* Dextrose 50 % in Water (Syg) 50 ML SYRINGE IVP PRN (16:34)
[2019-11-02] MEDS ORDERED: Sennosides 8.6 MG TABLET PO PRN (16:34)
[2019-11-02] MEDS ORDERED: *HR* Promethazine 25 MG/ML VIAL IVP PRN (16:34)
[2019-11-02] MEDS ORDERED: HYDROcodone BIT/Homatropine 5 MG TABLET PO PRN (16:34)
[2019-11-02] MEDS ORDERED: Naloxone 0.4 MG/ML INJ IVP PRN (16:34)
[2019-11-02] MEDS ORDERED: Dextrose Gel 15 GM/37.5 ML TUBE PO PRN ×2 (16:34)
[2019-11-02] MEDS ORDERED: MOM Conc 10 ML UD.LIQ PO PRN (16:34)
[2019-11-02] MEDS ORDERED: Ondansetron 4 MG/2 ML VIAL IVP PRN (16:34)
[2019-11-02 16:48] LABS: Hemoglobin 11.4 g/dL (12.9-16.9)
[2019-11-02] MEDS ORDERED: Aspirin Enteric Coated 81 MG Tablet PO SCH (21:00)
[2019-11-02] MEDS: Insulin LISPRO 300 UNITS/3 ML VIAL SQ SCH ×2 (21:05→21:20)
[2019-11-02] MEDS: Gabapentin 400 MG CAPSULE PO SCH ×2 (21:06→21:17)
[2019-11-02] MEDS: *HR* OxyCODONE Immed Rel 5 MG TABLET PO PRN (21:16)
[2019-11-02] MEDS: *HR* Metformin 500 MG TABLET PO SCH (21:17)
[2019-11-02] MEDS: Pyridostigmine Br 60 MG TABLET PO SCH (21:18)
[2019-11-02] MEDS: Valsartan 160 MG TABLET PO SCH (21:18)
[2019-11-02] MEDS: Ascorbic Acid 500 MG TABLET PO SCH (21:18)
[2019-11-02] MEDS: ceFAZolin 3,000 MG in 0.9 % Sodium Chloride 100 ML IVPB SCH (21:19)
[2019-11-03] MEDS: ceFAZolin 3,000 MG in 0.9 % Sodium Chloride 100 ML IVPB SCH (05:27)
[2019-11-03 05:37] LABS: Basophils % 0.1 %; Hematocrit 36.4 % (37.5-50.1); Immature Granulocytes % 0.5 % (0-4); Lymphocytes # 0.8 K/mcL (0.6-4.6); Lymphocytes % 4.5 %; Mean Corpuscular HGB Conc 30.2 g/dL (31.6-35.5); Mean Corpuscular Volume 89.4 fL (83.0-100.0); Mean Platelet Volume 11.2 fL (9.4-12.4); Monocytes % 5.4 %; Neutrophils # 16.2 K/mcL (1.6-8.9); Platelet Count 248 K/mcL (140-400); Red Blood Count 4.07 M/mcL (4.19-5.50); Red Cell Distribution Width 14.6 % (11.5-14.5); Segmented Neutrophils % 89.5 %
[2019-11-03 05:59] LABS: BUN/Creatinine Ratio 20 (6-26); Blood Urea Nitrogen 22 mg/dL (8-23); Calcium 8.8 mg/dL (8.6-10.3); Carbon Dioxide 25 mEq/L (23-29); Chloride 104 mEq/L (98-107); Glucose 204 mg/dL (70-105); Osmolality,Calculated 289 (280-300); Potassium 4.6 mEq/L (3.5-5.1); Sodium 135 mEq/L (136-145); eGFR For African Americans > 60 (> 60); eGFR For Non-African Americans > 60 (> 60)
[2019-11-03] MEDS ORDERED: IRON PO SCH (09:00)
[2019-11-03] MEDS ORDERED: MULTIVITAMIN MIN PO SCH (09:00)
[2019-11-03] MEDS ORDERED: [UNRECOGNIZED DRUG - OTHER] PO SCH (09:00)
[2019-11-03] MEDS ORDERED: VIT K PO SCH (09:00)
[2019-11-03] MEDS: Gabapentin 400 MG CAPSULE PO SCH ×3 (09:08→20:01)
[2019-11-03] MEDS: *HR* Metformin 500 MG TABLET PO SCH ×2 (09:08→16:55)
[2019-11-03] MEDS: Pyridostigmine Br 60 MG TABLET PO SCH ×3 (09:08→20:00)
[2019-11-03] MEDS: allopurinoL 300 MG TABLET PO SCH (09:08)
[2019-11-03] MEDS: Famotidine 20 MG TABLET PO SCH (09:08)
[2019-11-03] MEDS: Multivit/Ca/Min/Fe/FA 1 TAB TABLET PO SCH (09:08)
[2019-11-03] MEDS: Ascorbic Acid 500 MG TABLET PO SCH ×2 (09:08→16:55)
[2019-11-03] MEDS: amLODIPine 5 MG TABLET PO SCH (09:09)
[2019-11-03] MEDS: *HR* OxyCODONE Immed Rel 5 MG TABLET PO PRN ×3 (09:09→22:22)
[2019-11-03] MEDS: Insulin LISPRO 300 UNITS/3 ML VIAL SQ SCH ×4 (09:14→20:03)
[2019-11-03] MEDS: Psyllium 1 PACKET POWD.PACK PO SCH (09:15)
[2019-11-03] MEDS: Aspirin Enteric Coated 81 MG Tablet PO SCH (12:57)
[2019-11-03] MEDS: Valsartan 160 MG TABLET PO SCH (20:01)
[2019-11-04] MEDS: *HR* OxyCODONE Immed Rel 5 MG TABLET PO PRN (05:21)
[2019-11-04 07:28] VITALS: BP 120/82
[2019-11-04 07:47] LABS: Basophils % 0.3 %; Eosinophils # 0.3 K/mcL (0.0-0.6); Eosinophils % 2.1 %; Hematocrit 36.1 % (37.5-50.1); Hemoglobin 11.1 g/dL (12.9-16.9); Immature Granulocytes % 0.3 % (0-4); Lymphocytes # 2.1 K/mcL (0.6-4.6); Lymphocytes % 15.7 %; Mean Corpuscular HGB Conc 30.7 g/dL (31.6-35.5); Mean Corpuscular Hemoglobin 28.2 pg (28.0-33.3); Mean Corpuscular Volume 91.6 fL (83.0-100.0); Monocytes # 0.9 K/mcL (0.0-1.3); Monocytes % 7.2 %; Neutrophils # 9.8 K/mcL (1.6-8.9); Platelet Count 217 K/mcL (140-400); Red Blood Count 3.94 M/mcL (4.19-5.50); Red Cell Distribution Width 14.9 % (11.5-14.5); Segmented Neutrophils % 74.4 %; White Blood Count 13.1 K/mcL (4.3-11.1)
[2019-11-04 08:04] LABS: BUN/Creatinine Ratio 21 (6-26); Blood Urea Nitrogen 24 mg/dL (8-23); Calcium 8.7 mg/dL (8.6-10.3); Carbon Dioxide 29 mEq/L (23-29); Chloride 104 mEq/L (98-107); Glucose 143 mg/dL (70-105); Osmolality,Calculated 291 (280-300); Potassium 4.2 mEq/L (3.5-5.1); Sodium 137 mEq/L (136-145); eGFR For African Americans > 60 (> 60); eGFR For Non-African Americans > 60 (> 60)
[2019-11-04] MEDS: Insulin LISPRO 300 UNITS/3 ML VIAL SQ SCH (10:40)
[2019-11-04] MEDS: Aspirin Enteric Coated 81 MG Tablet PO SCH (11:02)
[2019-11-04] MEDS: Gabapentin 400 MG CAPSULE PO SCH (11:02)
[2019-11-04] MEDS: *HR* Metformin 500 MG TABLET PO SCH (11:02)
[2019-11-04] MEDS: Ascorbic Acid 500 MG TABLET PO SCH (11:02)
[2019-11-04] MEDS: Pyridostigmine Br 60 MG TABLET PO SCH (11:02)
[2019-11-04] MEDS: Psyllium 1 PACKET POWD.PACK PO SCH (11:02)
[2019-11-04] MEDS: amLODIPine 5 MG TABLET PO SCH (11:03)
[2019-11-04] MEDS: allopurinoL 300 MG TABLET PO SCH (11:03)
[2019-11-04] MEDS: Famotidine 20 MG TABLET PO SCH (11:03)
[2019-11-04] MEDS: Multivit/Ca/Min/Fe/FA 1 TAB TABLET PO SCH (11:03)
== END 2019-11-04 12:20 | disposition home health service (06) ==
LOC: 3NENU 10:52 → SAMDAY 10:52 → 3NENU 17:32
PROVIDERS: ADMIT Orthopaedic Surgery; ATTEND Orthopaedic Surgery